=== PATIENT | female | born 1950 | race Caucasian/White ===

== ENCOUNTER 2016-05-31 11:44 | Emergency (ER) | payer MEDICARE ==
--- NOTE | 2016-05-31 11:58 | ER Document Report ---
ED Medical Screen (RME) - General Chief Complaint: General Weakness Stated Complaint: BACK PAIN TRAVEL OUTSIDE OF THE [place] IN LAST 30 DAYS: No - HPI Patient complains to provider of: generalized weakness Notes: 05/31/16 11:57 Generalweakness for a few days nausea vomiting patient has a history of hypothyroid did not take her Synthroid a day patient has urinalysis performed showing positive nitrates. Denies fevers patient did get a flu shot this year - Related Data Allergies/Adverse Reactions: morphine Allergy (Verified 05/31/16 11:47) Past Medical History Renal/ Medical History: Denies: Hx Peritoneal Dialysis Review of Systems - Review of Systems Constitutional: Weakness Physical Exam - Vital signs Vitals: Temp Pulse Resp BP Pulse Ox 97.7 F 77 16 118/93 H 100 05/31/16 11:49 05/31/16 11:49 05/31/16 11:49 05/31/16 11:49 05/31/16 11:49 - Cardiovascular Rhythm: Regular Heart sounds: Normal auscultation Course - Vital Signs Vital signs: Temp Pulse Resp BP Pulse Ox 97.7 F 77 16 118/93 H 100 05/31/16 11:49 05/31/16 11:49 05/31/16 11:49 05/31/16 11:49 05/31/16 11:49
[2016-05-31 12:30] LABS: ABSOLUTE LYMPHOCYTES (AUTO) 1.3 10^3/uL (0.5-4.7); ABSOLUTE MONOCYTES (AUTO) 0.3 10^3/uL (0.1-1.4); ABSOLUTE NEUT (AUTO) 1.2 10^3/uL (1.7-8.2); BASOPHILS % (AUTO) 0.4 % (0-2); EOSINOPHILS % (AUTO) 0.1 % (0-6); HEMATOCRIT 39.8 % (36.0-47.0); HEMOGLOBIN 13.2 g/dL (12.0-15.5); HGB HCT DIFFERENCE -0.2; LYMPHOCYTES % (AUTO) 45.9 % (13-45); MEAN CORPUSCULAR HEMOGLOBIN 28.1 pg (27.0-33.4); MEAN CORPUSCULAR HGB CONC 33.2 g/dL (32.0-36.0); MEAN CORPUSCULAR VOLUME 85 fl (80-97); MONOCYTES % (AUTO) 10.9 % (3-13); RED CELL DISTRIBUTION WIDTH 14.3 % (11.5-14.0); SEGMENTED NEUTROPHILS % (AUTO) 42.7 % (42-78); WHITE BLOOD COUNT 2.9 10^3/uL (4.0-10.5)
[2016-05-31 12:36] LABS: APPEARANCE,URINE CLOUDY; BILIRUBIN,URINE NEGATIVE (NEGATIVE); GLUCOSE, URINE >=500 mg/dL (NEGATIVE); KETONES,URINE NEGATIVE (NEGATIVE); LEUKOCYTE ESTERASE,URINE MODERATE (NEGATIVE); NITRITE,URINE POSITIVE (NEGATIVE); PROTEIN,URINE 30 mg/dL (NEGATIVE); URINE SPECIFIC GRAVITY 1.033; UROBILINOGEN,URINE NEGATIVE mg/dL (<2.0)
[2016-05-31 12:45] LABS: ALANINE AMINOTRANSFERASE 45 U/L (9-52); ALBUMIN 3.7 g/dL (3.5-5.0); ALKALINE PHOSPHATASE 52 U/L (38-126); ANION GAP 12 (5-19); ASPARTATE AMINO TRANSFERASE 29 U/L (14-36); BILIRUBIN,DIRECT 0.2 mg/dL (0.0-0.4); BILIRUBIN,TOTAL 0.7 mg/dL (0.2-1.3); BLOOD UREA NITROGEN 13 mg/dL (7-20); CALCIUM 8.8 mg/dL (8.4-10.2); CARBON DIOXIDE 24 mmol/L (22-30); CHLORIDE 108 mmol/L (98-107); CREATININE RESULT 0.69 mg/dL (0.52-1.25); GLUCOSE 169 mg/dL (75-110); LIPASE 335.2 U/L (23-300); MAGNESIUM 1.7 mg/dL (1.6-2.3); POTASSIUM 3.8 mmol/L (3.6-5.0); SODIUM 144.2 mmol/L (137-145); TOTAL PROTEIN 6.6 g/dL (6.3-8.2)
[2016-05-31 13:15] LABS: THYROID STIMULATING HORMONE 0.1 uIU/mL (0.47-4.68)
[2016-05-31] MEDS ORDERED: CIPROFLOXACIN 400 MG/D5W RTU 200 ML IV ONE (13:15)
[2016-05-31] MEDS ORDERED: CIPROFLOXACIN HCL 500 MG TABLET PO ONE (13:23)
[2016-05-31] MEDS ORDERED: ONDANSETRON 4 MG TAB.RAPDIS PO ONE (13:25)
--- NOTE | 2016-05-31 13:25 | ER Document Report ---
ED General - General Chief Complaint: General Weakness Stated Complaint: BACK PAIN Mode of Arrival: Ambulatory Information source: Patient Notes: 66-year-old female presents with complaints of right flank pain generalized weakness nausea vomiting and feeling warm over the past few days. Patient denies any specific fever. Patient was seen by primary care physician noted to have a UTI and sent in for further evaluation TRAVEL OUTSIDE OF THE [place] IN LAST 30 DAYS: No - HPI Onset: Yesterday - Three-day duration Onset/Duration: Persistent Quality of pain: Achy Severity: Mild Pain Level: 1 Associated symptoms: Nausea, Vomiting, Weakness Exacerbated by: Denies Relieved by: Denies Similar symptoms previously: No Recently seen / treated by doctor: No - Related Data Allergies/Adverse Reactions: morphine Allergy (Verified 05/31/16 12:39) Past Medical History - Social History Smoking Status: Former Smoker Cigarette use (# per day): No Chew tobacco use (# tins/day): No Smoking Education Provided: No Frequency of alcohol use: None Drug Abuse: None Family History: Reviewed & Not Pertinent Patient has suicidal ideation: No Patient has homicidal ideation: No Endocrine Medical History: Reports: Hx Diabetes Mellitus Type 2 Renal/ Medical History: Denies: Hx Peritoneal Dialysis Past Surgical History: Reports: Hx Section - x3, Hx Hysterectomy Review of Systems - Review of Systems Notes: REVIEW OF SYSTEMS: CONSTITUTIONAL : Denies fever, chills, or sweats. Denies recent illness. EENT: Denies eye, ear, throat, or mouth pain or symptoms. Denies nasal or sinus congestion or discharge. Denies throat, tongue, or mouth swelling or difficulty swallowing. CARDIOVASCULAR: Denies chest pain. Denies palpitations or racing or irregular heart beat. Denies ankle edema. RESPIRATORY: Denies cough, cold, or chest congestion. Denies shortness of breath, difficulty breathing, or wheezing. GASTROINTESTINAL: Admits to nausea vomiting or flank pain GENITOURINARY: Denies difficulty urinating, painful urination, burning, frequency, blood in urine, or discharge. FEMALE GENITOURINARY: Denies vaginal bleeding, heavy or abnormal periods, irregular periods. Denies vaginal discharge or odor. MUSCULOSKELETAL: Denies back or neck pain or stiffness. Denies joint pain or swelling. SKIN: Denies rash, lesions or sores. HEMATOLOGIC : Denies easy bruising or bleeding. LYMPHATIC: Denies swollen, enlarged glands. NEUROLOGICAL: Admits to generalized weakness PSYCHIATRIC: Denies anxiety or stress. Denies depression, suicidal ideation, or homicidal ideation. ALL OTHER SYSTEMS REVIEWED AND NEGATIVE. Dictation was performed using [employer] voice recognition software PHYSICAL EXAMINATION: GENERAL: Well-appearing, well-nourished and in no acute distress. HEAD: Atraumatic, normocephalic. EYES: Pupils equal round and reactive to light, extraocular movements intact, conjunctiva are normal. ENT: Nares patent, oropharynx clear without exudates. Moist mucous membranes. NECK: Normal range of motion, supple without lymphadenopathy LUNGS: Breath sounds clear to auscultation bilaterally and equal. No wheezes rales or rhonchi. HEART: Regular rate and rhythm without murmurs ABDOMEN: Soft, nontender, nondistended abdomen. No guarding, no rebound. No masses appreciated. Mild right CVA tenderness Female : deferred Musculoskeletal: Normal range of motion, no pitting or edema. No cyanosis. NEUROLOGICAL: Cranial nerves grossly intact. Normal speech, normal gait. Normal sensory, motor exams PSYCH: Normal mood, normal affect. SKIN: Warm, Dry, normal turgor, no rashes or lesions noted. Physical Exam - Vital signs Vitals: Temp Pulse Resp BP Pulse Ox 97.7 F 77 16 118/93 H 100 05/31/16 11:49 05/31/16 11:49 05/31/16 11:49 05/31/16 11:49 05/31/16 11:49 Course - Re-evaluation Re-evalutation: 05/31/16 15:11 Urinalysis is consistent with a UTI, patient's laboratory otherwise notes mild leukopenia TSH was noted to be low as well. I believe the patient has pyelonephritis looks well. Patient will be started on antibiotics given nausea control and very strict return precautions. Patient states she understands and will do so and is very happy to be discharged After performing a Medical Screening Examination, I estimate there is LOW risk for ACUTE APPENDICITIS, BOWEL OBSTRUCTION, ACUTE CHOLECYSTITIS, PERFORATED DIVERTICULITIS, INCARCERATED HERNIA, PANCREATITIS, PELVIC INFLAMMATORY DISEASE, PERFORATED ULCER, ECTOPIC , or TUBO-OVARIAN ABSCESS, thus I consider the discharge disposition reasonable. Also, there is no evidence or peritonitis , sepsis, or toxicity. The patient and I have discussed the diagnosis and risks , and we agree with discharging home with close follow-up with the understanding that symptoms and presentations can change. We also discussed returning to the Emergency Department immediately if new or worsening symptoms occur. We have discussed the symptoms which are most concerning (e.g., bloody stool, fever, changing or worsening pain, vomiting) that necessitate immediate return. - Vital Signs Vital signs: Temp Pulse Resp BP Pulse Ox 98.7 F 70 19 144/62 H 94 05/31/16 13:39 05/31/16 13:39 05/31/16 13:39 05/31/16 13:39 05/31/16 13:39 - Laboratory Result Diagrams: 05/31/16 12:05 05/31/16 12:05 Laboratory results interpreted by me: 05/31/16 05/31/16 05/31/16 12:05 12:05 12:05 WBC 2.9 L RDW 14.3 H Plt Count 103 L Lymphocytes % 45.9 H Absolute Neutrophils 1.2 L Chloride 108 H Glucose 169 H Lipase 335.2 H TSH 0.10 L Urine Protein Urine Glucose (UA) Urine Nitrite Ur Leukocyte Esterase 05/31/16 12:05 WBC RDW Plt Count Lymphocytes % Absolute Neutrophils Chloride Glucose Lipase TSH Urine Protein 30 H Urine Glucose (UA) >=500 H Urine Nitrite POSITIVE H Ur Leukocyte Esterase MODERATE H Discharge - Discharge Clinical Impression: Pyelonephritis, Weakness, Secondary hypothyroidism Condition: Stable Disposition: HOME, SELF-CARE Instructions: Pyelonephritis ([facility]) Prescriptions: Ciprofloxacin HCl [Cipro 500 mg Tablet] 500 mg PO BID #20 tablet Ondansetron HCl [Zofran] 8 mg PO Q6 #14 tablet Referrals: BRIAN LAWRENCE DO [Primary Care Provider] - Follow up tomorrow
[2016-05-31 13:43] VITALS: BP 144/62
== END 2016-05-31 13:43 | disposition home or self-care (01) ==
LOC: ER 11:44
DX: E03.9 Hypothyroidism, unspecified (principal); R53.1 Weakness; N12 Tubulo-interstitial nephritis, not specified as acute or chronic; R11.2 Nausea with vomiting, unspecified; R10.9 Unspecified abdominal pain; Z88.5 Allergy status to narcotic agent; Z87.891 Personal history of nicotine dependence; E11.9 Type 2 diabetes mellitus without complications; D72.819 Decreased white blood cell count, unspecified
CPT/HCPCS: 99283; 36415; 84439; 83605; 83690; 83735; 84443; 85025; 80053; 81001; A9270 ×2; S0119

== ENCOUNTER → 2016-07-02 | Outpatient (CLI) | payer MEDICARE ==
[~2016-07-02] MED LIST: AMINOPHYLLINE INJ/PF 250 MG/10 ML SDV IV ONE; REGADENOSON INJ 0.4 MG/5 ML DISP.SYRIN IV ONE
--- NOTE | 2016-07-02 18:45 | NON-INVASIVE CARDIOLOGY (SQ) ---
INTRAVENOUS LEXISCAN CARDIOLITE STRESS TEST USING SINGLE PHOTON EMMISION COMPUTERIZED TOMOGRAPHIC. DATE OF PROCEDURE: July 02, 2016 INDICATION : Coronary artery disease CARDIAC RISK FACTORS: Diabetes, hypertension, dyslipidemia, family history of CAD RESTING EKG: Sinus rhythm without any baseline ST-T wave changes STRESS EKG: No significant changes noted with LexiScan bolus REASON FOR TERMINATION: Protocol. PROCEDURE REPORT: Baseline heart rate 70 beats per minute with blood pressure of 127/66. Patient had no significant complaints. Heart rate at 2 minutes post bolus 79 with a blood pressure of 120/47. 3 minutes post bolus heart rate 76 with blood pressure of 126/49. No significant EKG changes were noted. Patient had no significant complaints during the procedure or postprocedure. Patient injected with Aminophyllin 75 mg at 3 minutes or later after Lexiscan bolus. CONCLUSIONS: Normal EKG and hemodynamic response to IV LexiScan. NUCLEAR DATA: At rest the patient was given 13.88 millicuries of technetium 99 sestamibi injected intravenously. As per protocol rest gated SPECT images were obtained. Subsequently the patient was given intravenous LexiScan at a dose of 0.4 mg in 5 mL intravenously, followed by flush with normal saline. Subsequently the stress dose of 41.6 millicuries of technetium 99 sestamibi was injected intravenously. As per protocol stress gated images were obtained. NUCLEAR INTERPRETATION: Both raw and processed data were used for interpretation. Visual, qualitative, computer-generated quantitative data was used. There was good myocardial uptake of technetium compound. Motion artifact and soft tissue attenuations were noted. Increased visceral uptake was noted. Mild decreased uptake noted in the LV apex felt to be related to normal apical thinning. Cannot rule out a small area of prior mild apical scar but no corresponding wall motion abnormalities were noted No definitive areas of transient perfusion defect noted. No definitive areas of fixed perfusion defect or scars noted. EKG gated imaging showed LV EF at 52 %, rest and stress gated EF similar visually. T. I D. ratio was 1.01. Lung heart ratio noted to be within normal limits 0.34. No significant extracardiac and abnormal radiotracer activities were noted. RV free wall uptake was noted to be borderline increased. IMPRESSION: Also refer to comments under nuclear interpretation. Also test results needs to be interpreted in the context of pretest probability. 1. There is no definitive scintigraphic evidence of LexiScan induced myocardial ischemia. 2. There is no definitive scintigraphic evidence of myocardial infarction/scar. 3. EKG gated imaging shows left ejection fraction of approximately 52 %. 4. Clinical correlation requested as occasionally single vessel disease or balanced ischemia could be missed. In approximately 10% of the cases Lexiscan may not cause adequate vasodilatory stress. RECOMMENDATIONS: Aggressive risk factor modification, medical therapy. Clinical correlation with echocardiogram derived ejection fraction. Inability to exercise by itself can lead to increased cardiovascular event risks. Dwain Mckee M.D., [facility] Director plastic bubble packer, Board certified in cardiovascular diseases, Nuclear cardiology, Echocardiography Cardiac CT and cardiac MRI Ph. [phone] [facility]
== END ==
LOC: RAD 07:53
PROVIDERS: ATTEND Internal Medicine Cardiovascular Disease
DX: I25.10 Atherosclerotic heart disease of native coronary artery without angina pectoris (principal)
CPT/HCPCS: 93017; 78452; A9500; J2785; J0280; Q9969

== ENCOUNTER 2016-09-27 09:36 | Emergency (ER) | payer MEDICARE ==
[2016-09-27] MEDS ORDERED: BUPIVACAINE HCL 0.5 % INJ/PF 30 ML SDV INJ ONE (10:24)
[2016-09-27] MEDS ORDERED: CLINDAMYCIN HCL 150 MG CAPSULE PO ONE (10:24)
--- NOTE | 2016-09-27 10:29 | ER Document Report ---
ED General - General Chief Complaint: Facial Swelling Stated Complaint: JAW PAIN Time Seen by Provider: 09/27/16 10:09 Mode of Arrival: Ambulatory Information source: Patient Notes: 66-year-old female history of diabetes coronary artery disease very poor dentition presents with complaints of left facial swelling. Patient notes symptoms started over the past 3 days. Patient notes her tooth was hurting on the left. Denies a history of previous abscesses. Patient denies any fevers or chills, difficulty breathing TRAVEL OUTSIDE OF THE [place] IN LAST 30 DAYS: No - HPI Onset: Last week Onset/Duration: Persistent, Worse Quality of pain: Achy Severity: Moderate Pain Level: 2 Associated symptoms: Other Exacerbated by: Food Relieved by: Denies Similar symptoms previously: No Recently seen / treated by doctor: No - Related Data Allergies/Adverse Reactions: morphine Allergy (Verified 09/27/16 10:08) Past Medical History - Social History Smoking Status: Never Smoker Cigarette use (# per day): No Chew tobacco use (# tins/day): No Smoking Education Provided: No Frequency of alcohol use: None Drug Abuse: None Family History: Reviewed & Not Pertinent Patient has suicidal ideation: No Patient has homicidal ideation: No - Past Medical History Cardiac Medical History: Reports: Hx Hypertension Endocrine Medical History: Reports: Hx Diabetes Mellitus Type 2 Renal/ Medical History: Denies: Hx Peritoneal Dialysis Past Surgical History: Reports: Hx Section - x3, Hx Hysterectomy Review of Systems - Review of Systems Notes: REVIEW OF SYSTEMS: CONSTITUTIONAL : Denies fever, chills, or sweats. Denies recent illness. EENT: Admits to dental pain facial swelling CARDIOVASCULAR: Denies chest pain. Denies palpitations or racing or irregular heart beat. Denies ankle edema. RESPIRATORY: Denies cough, cold, or chest congestion. Denies shortness of breath, difficulty breathing, or wheezing. GASTROINTESTINAL: Denies abdominal pain or distention. Denies nausea, vomiting , or diarrhea. Denies blood in vomitus, stools, or per rectum. Denies black, tarry stools. Denies constipation. GENITOURINARY: Denies difficulty urinating, painful urination, burning, frequency, blood in urine, or discharge. FEMALE GENITOURINARY: Denies vaginal bleeding, heavy or abnormal periods, irregular periods. Denies vaginal discharge or odor. MUSCULOSKELETAL: Denies back or neck pain or stiffness. Denies joint pain or swelling. SKIN: Denies rash, lesions or sores. HEMATOLOGIC : Denies easy bruising or bleeding. LYMPHATIC: Denies swollen, enlarged glands. NEUROLOGICAL: Denies confusion or altered mental status. Denies passing out or loss of consciousness. Denies dizziness or lightheadedness. Denies headache. Denies weakness or paralysis or loss of use of either side. Denies problems with gait or speech. Denies sensory loss, numbness, or tingling. Denies seizures. PSYCHIATRIC: Denies anxiety or stress. Denies depression, suicidal ideation, or homicidal ideation. ALL OTHER SYSTEMS REVIEWED AND NEGATIVE. PHYSICAL EXAMINATION: GENERAL: Well-appearing, well-nourished and in no acute distress. HEAD: Facial edema noted tender fluctuant just lateral to tooth number 19 EYES: Pupils equal round and reactive to light, extraocular movements intact, conjunctiva are normal. ENT: left facial edema, poor dentition gum around missing tooth 19 swollen NECK: Normal range of motion, supple without lymphadenopathy LUNGS: Breath sounds clear to auscultation bilaterally and equal. No wheezes rales or rhonchi. HEART: Regular rate and rhythm without murmurs ABDOMEN: Soft, nontender, nondistended abdomen. No guarding, no rebound. No masses appreciated. Female : deferred Musculoskeletal: Normal range of motion, no pitting or edema. No cyanosis. NEUROLOGICAL: Cranial nerves grossly intact. Normal speech, normal gait. Normal sensory, motor exams PSYCH: Normal mood, normal affect. SKIN: Warm, Dry, normal turgor, no rashes or lesions noted. Dictation was performed using [employer] voice recognition software Physical Exam - Vital signs Vitals: Temp Pulse Resp BP Pulse Ox 98 F 60 16 186/64 H 97 09/27/16 10:04 09/27/16 10:04 09/27/16 10:04 09/27/16 10:04 09/27/16 10:04 Course - Re-evaluation Re-evalutation: 09/27/16 10:29 pt has obvious swelling around an infected decayed tooth. 09/27/16 10:54 area incise, drained, no complications. pt placed jovan ntibtiocs given very strict return precautaitons no signs of airway compromise, dea angina at this time After performing a Medical Screening Examination, I estimate there is LOW risk for a DEEP SPACE INFECTION (e.g., DEA'S ANGINA OR RETROPHARYNGEAL ABSCESS), MENINGITIS, INTRACRANIAL HEMORRHAGE, or AIRWAY COMPROMISE, thus I consider the discharge disposition reasonable. Also, there is no evidence or peritonitis, sepsis, or toxicity. I have reevaluated this patient multiple times and no significant life threatening changes are noted. The patient and I have discussed the diagnosis and risks, and we agree with discharging home with close follow-up with the understanding that symptoms and presentations can change. We also discussed returning to the Emergency Department immediately if new or worsening symptoms occur. We have discussed the symptoms which are most concerning (e.g., changing or worsening pain, trouble swallowing or breathing, neck stiffness or fever) that necessitate immediate return. - Vital Signs Vital signs: Temp Pulse Resp BP Pulse Ox 98 F 60 16 186/64 H 97 09/27/16 10:04 09/27/16 10:04 09/27/16 10:04 09/27/16 10:04 09/27/16 10:04 Procedures - Incision and Drainage Left Lower Face Time completed: 10:50 Type: Simple Anesthetic type: 0.5% Bupivacaine mL's of anesthetic: 10 Blade size: 11 I&D procedure: Sterile dressing applied Incision Method: Incision made by scalpel Amount/type of drainage: small pus with large blood - Additional Procedures inferior alveolar nerve block Time performed: 10:45 - using 10cc of 0.5% bupivicaine iwth ocmplete releif no complication Discharge - Discharge Clinical Impression: Dental abscess, Facial swelling Condition: Stable Disposition: HOME, SELF-CARE Instructions: Abscess ([facility]), Post Incision and Drainage Additional Instructions: Follow up with your physician tomorrow for further care or return to the ED IMMEDIATELY if symptoms worsen or new concerns occur. If you cannot afford to follow up with your primary care physician a list of low cost clinics have been provided at the end of your discharge papers as well. Prescriptions: Clindamycin HCl 300 mg PO Q6 #40 capsule
[2016-09-27 11:06] VITALS: BP 174/88
== END 2016-09-27 11:07 | disposition home or self-care (01) ==
LOC: ER 09:36
PROC: 0H91XZZ Drainage of Face Skin, External Approach (ICD-10-PCS; principal; 2016-09-27)
DX: K04.7 Periapical abscess without sinus (principal); K02.9 Dental caries, unspecified; R22.0 Localized swelling, mass and lump, head; E11.9 Type 2 diabetes mellitus without complications; I25.10 Atherosclerotic heart disease of native coronary artery without angina pectoris; I10 Essential (primary) hypertension; Z88.5 Allergy status to narcotic agent
CPT/HCPCS: 99283; 10060; A9270

== ENCOUNTER 2017-04-21 06:23 | Emergency (ER) | payer MEDICARE ==
[2017-04-21] MEDS ORDERED: DIAZEPAM 5 MG TABLET PO ONE (07:15)
[2017-04-21] MEDS ORDERED: KETOROLAC TROMETHAMINE 60 MG/2 ML SDV IM ONE (07:15)
--- NOTE | 2017-04-21 07:20 | ER Document Report ---
ED General - General Chief Complaint: Back Pain Stated Complaint: LOW BACK PAIN Time Seen by Provider: 04/21/17 07:12 Mode of Arrival: Ambulatory Information source: Patient Notes: 67 years old female presents today with pain over the lower back for the last few days more so this morning. The pain is centered mostly on the right lower back but also in the left lower back. More intense pain on the right lower back and radiates to the middle part of the thigh. Had no difficulty in walking. Denies any numbness tingling sensation or weakness over the lower extremities. No injuries. Was not lifting any heavy objects. Did not have similar symptoms before. Denies any abdominal pain nausea vomiting diarrhea dysuria or frequency. Denies any flank pain. Denies any other constitutional symptoms. TRAVEL OUTSIDE OF THE [place] IN LAST 30 DAYS: No - HPI Onset: Yesterday Onset/Duration: Gradual Quality of pain: Achy, Sharp. denies: No pain, Burning, Cramping, Dull, Fullness, Pressure, Stabbing, Throbbing, Other Associated symptoms: denies: None, Allergy/hay fever, Body/muscle aches, Chest pain, Chills, Nonproductive cough, Productive cough, Diarrhea, Drooling, Earache , Fever, Headache, Hoarseness, Hurts to breath, Leg swelling, Nausea, Vomiting, Rhinnorhea, Sinus pain/drainage, Shortness of breath, Slow to respond, Sore throat, Sweating, Weakness, Other Exacerbated by: Movement, Walking. denies: Denies, Supine, Sitting, Standing, Coughing, Deep breathing, Food, Other Relieved by: denies: Denies, Supine, Sitting, Standing, Remaining still, Antacids, Food, Other - Related Data Allergies/Adverse Reactions: morphine Allergy (Verified 09/27/16 10:08) Past Medical History - General Information source: Parent - Social History Smoking Status: Never Smoker Chew tobacco use (# tins/day): No Frequency of alcohol use: None Drug Abuse: None Family History: Reviewed & Not Pertinent Patient has suicidal ideation: No Patient has homicidal ideation: No - Past Medical History Cardiac Medical History: Reports: Hx Hypertension Endocrine Medical History: Reports: Hx Diabetes Mellitus Type 2 Renal/ Medical History: Denies: Hx Peritoneal Dialysis Past Surgical History: Reports: Hx Section - x3, Hx Hysterectomy Review of Systems - Review of Systems Constitutional: denies: No symptoms reported, See HPI, Chills, Diaphoresis, Fever, Malaise, Weakness, Other, Weight gain, Weight loss, Recent illness EENT: denies: No symptoms reported, See HPI, Eye pain, Eye discharge, Blurred vision, Tearing, Double vision, Ear pain, Ear discharge, Nose pain, Nose congestion, Nose discharge, Sinus pressure, Sinus discharge, Throat pain, Difficulty swallowing, Throat swelling, Mouth pain, Mouth swelling, Dental problem, Vertigo, Other Cardiovascular: denies: No symptoms reported, See HPI, Chest pain, Palpitations , Heart racing, Orthopnea, Dyspnea, Syncope, Dizziness, Lightheaded, Edema, Other, Paroxysmal Nocturnal Dysp Respiratory: denies: No symptoms reported, See HPI, Cough, Hurts to breathe, Hemoptysis, Short of breath, Sputum, Stridor, Wheezing, Other Gastrointestinal: denies: No symptoms reported, See HPI, Abdomen distended, Abdominal pain, Diarrhea, Nausea, Vomiting, Constipation, Blood streaked bowels , Poor appetite, Poor fluid intake, Blood in vomit, Black stools, Rectal bleeding, Last bowel movement, Fecal incontinence, Other Genitourinary: denies: No symptoms reported, See HPI, Burning, Dysuria, Discharge, Frequency, Flank pain, Hematuria, Incontinence, Pain, Urgency, Retention, Other Female Genitourinary: denies: No symptoms reported, See HPI, Last menstrual period, , Post menopausal, Heavy/abnormal periods, Irregular period, Vaginal bleeding, Vaginal discharge, Vaginal odor, Painful intercourse, Other Musculoskeletal: Back pain Skin: denies: No symptoms reported, See HPI, Change in color, Change in hair/ nails, Dryness, Lesions, Lumps, Rash, Other Hematologic/Lymphatic: denies: No symptoms reported, See HPI, Anemia, Blood clots, Easy bleeding, Easy bruising, Enlarged lymph nodes, Swollen glands, Other Neurological/Psychological: denies: No symptoms reported, See HPI, Confusion, Dementia, Depression, Hallucinations, Anxiety, Homicidal ideation, Sensory change, Weakness, Gait changes, Loss of power, Paralysis, Seizure, Lost consciousness, Headaches, Speech impairment, Numbness, Suicidal ideation, Tingling, Tremor, Other Physical Exam - Notes Notes: PHYSICAL EXAMINATION: GENERAL: Well-appearing, well-nourished and mild to moderate discomfort, obesity HEAD: Atraumatic, normocephalic. EYES: Pupils equal round and reactive to light, extraocular movements intact, conjunctiva are normal. ENT: Nares patent, oropharynx clear without exudates. Moist mucous membranes. NECK: Normal range of motion, supple without lymphadenopathy LUNGS: Breath sounds clear to auscultation bilaterally and equal. No wheezes rales or rhonchi. HEART: Regular rate and rhythm without murmurs ABDOMEN: Soft, nontender, nondistended abdomen. No guarding, no rebound. No masses appreciated. Female : deferred Musculoskeletal: Right lower back at the L5-S1 region slight tenderness were noted, gets more tender over the right sacroiliac joint region. And also moderate tenderness over the left sacroiliac joint region. Neurovascular function distally was within normal limits. NEUROLOGICAL: Cranial nerves grossly intact. Normal speech, normal gait. Normal sensory, motor exams PSYCH: Normal mood, normal affect. SKIN: Warm, Dry, normal turgor, no rashes or lesions noted. Course - Re-evaluation Re-evalutation: 04/21/17 08:26 Was given Toradol IM as well as Valium, with clinical improvement discharge home 04/21/17 08:26 - Laboratory Laboratory results interpreted by me: 04/21/17 07:00 Urine Protein 100 H Urine Glucose (UA) >=500 H Urine Ketones TRACE H Discharge - Discharge Clinical Impression: Bilateral sacroiliitis Lower back pain Qualifiers: Chronicity: acute Back pain laterality: unspecified Sciatica presence: without sciatica Qualified Code(s): M54.5 - Low back pain Condition: Fair Disposition: ADMITTED INPATIENT Instructions: Oral Narcotic Medication ([facility]), Low Back Pain ([facility]) Prescriptions: Hydrocodone/Acetaminophen [Vicodin 5-300 mg Tablet] 1 each PO Q6HP PRN #20 tablet PRN Reason: Ketorolac Tromethamine [Toradol 10 mg Tablet] 10 mg PO Q6HP PRN #20 tablet PRN Reason: Diazepam [Valium 2 mg Tablet] 2 mg PO BID PRN #14 tablet PRN Reason: Referrals: BRAIN LAWRENCE, [Primary Care Provider] - Follow up as needed
[2017-04-21] MEDS ORDERED: KETOROLAC TROMETHAMINE INJ/PF 30 MG/1 ML SDV IV ONE (07:42)
[2017-04-21 08:04] LABS: APPEARANCE,URINE CLEAR; BILIRUBIN,URINE NEGATIVE (NEGATIVE); COLOR,URINE YELLOW; GLUCOSE, URINE >=500 mg/dL (NEGATIVE); KETONES,URINE TRACE mg/dL (NEGATIVE); LEUKOCYTE ESTERASE,URINE NEGATIVE (NEGATIVE); NITRITE,URINE NEGATIVE (NEGATIVE); PROTEIN,URINE 100 mg/dL (NEGATIVE); URINE SPECIFIC GRAVITY 1.018; UROBILINOGEN,URINE NEGATIVE mg/dL (<2.0)
--- NOTE | 2017-04-21 08:20 | RADIOLOGY REPORT (SQ) ---
EXAM DESCRIPTION: L SPINE WHOLE COMPLETED DATE/TIME: 04/21/2017 7:42 am REASON FOR STUDY: Back pain COMPARISON: None. NUMBER OF VIEWS: Five views including obliques. TECHNIQUE: AP, lateral, oblique, and sacral radiographic images acquired of the lumbar spine. LIMITATIONS: None. FINDINGS: MINERALIZATION: Normal. SEGMENTATION: Normal. No transitional anatomy. ALIGNMENT: Normal. VERTEBRAE: Maintained height. No fracture or worrisome bone lesion. DISCS: Mild disc space loss of height at L5-S1 POSTERIOR ELEMENTS: Mild bilateral facet joint space narrowing and bony spurring at L5-S1. HARDWARE: None in the spine. PARASPINAL SOFT TISSUES: Normal. PELVIS: Not included in the field of view. SI joints are unremarkable. OTHER: No other significant finding. IMPRESSION: Mild degenerative changes lower lumbar spine TECHNICAL DOCUMENTATION: JOB ID: [id number]- All Rights Reserved Reading location - IP/workstation name: [email or web address]
[2017-04-21 08:53] VITALS: BP 149/68
== END 2017-04-21 08:51 | disposition other institution (70) ==
LOC: ER 06:23
DX: M46.1 Sacroiliitis, not elsewhere classified (principal); M54.5 Low back pain; M54.9 Dorsalgia, unspecified; M79.651 Pain in right thigh
CPT/HCPCS: 99284; 96372; 81001; 72110; A9270; J1885

== ENCOUNTER 2020-01-08 18:23 | Observation (INO) | payer MEDICARE, BC ==
--- NOTE | 2020-01-08 19:47 | ER Document Report ---
ED Medical Screen (RME) - General Chief Complaint: Nausea/Vomiting Stated Complaint: NAUSEA/VOMITING Time Seen by Provider: 01/08/20 19:43 Primary Care Provider: BRIAN LAWRENCE DO [Primary Care Provider] - Follow up as needed Mode of Arrival: Wheelchair Information source: Patient Notes: 69-year-old female presented to ED for complaint of fatigue cough and vomiting when she coughs real hard. She was tested positive for Covid on 25 December. She does have nausea medicine that she takes she takes Zofran. Her son states that he was hesitant to bring her out here because she already has the nausea medicine and she knows she is Covid positive but he was convinced by other family members that she needed to come in to be checked out. We will get blood and urine chest x-ray and she will be seen by another provider. Cervical put back where you are and there get all the stuff going oka I have greeted and performed a rapid initial assessment of this patient. A comprehensive ED assessment and evaluation of the patient, analysis of test results and completion of medical decision making process will be conducted by an additional ED providers. TRAVEL OUTSIDE OF THE [place] IN LAST 30 DAYS: No - Related Data Allergies/Adverse Reactions: morphine Allergy (Verified 01/08/20 19:41) Past Medical History - Past Medical History Cardiac Medical History: Reports: Hx Hypertension Endocrine Medical History: Reports: Hx Diabetes Mellitus Type 2 Renal/ Medical History: Denies: Hx Peritoneal Dialysis Past Surgical History: Reports: Hx Section - x3, Hx Hysterectomy Physical Exam - Vital signs Vitals: Temp Pulse Resp BP Pulse Ox 98.1 F 80 18 132/64 H 93 01/08/20 18:41 01/08/20 18:41 01/08/20 18:41 01/08/20 18:41 01/08/20 18:41 Course - Vital Signs Vital signs: Temp Pulse Resp BP Pulse Ox 98.1 F 80 18 132/64 H 93 01/08/20 18:41 01/08/20 18:41 01/08/20 18:41 01/08/20 18:41 01/08/20 18:41 Doctor's Discharge - Discharge Referrals: BRIAN LAWRENCE DO [Primary Care Provider] - Follow up as needed
--- NOTE | 2020-01-08 20:47 | RADIOLOGY REPORT (SQ) ---
EXAM DESCRIPTION: Site: CHEST SINGLE VIEW RP: XR CHEST 1 VIEW CLINICAL HISTORY: 69 years Female; cough positive for covid on 12/26/19; COMPARISON: None. FINDINGS: Lungs: There are scattered groundglass densities throughout both lungs. No significant focal consolidation. No pneumothorax or pleural effusion. Mediastinum: Mediastinum is within normal limits for this positioning. Bones: Bony structures are unremarkable. IMPRESSION: 1. Scattered bilateral infiltrates, typical for viral pneumonia
[2020-01-08 23:11] LABS: ABSOLUTE EOSINOPHILS # (AUTO) 0.1 10^3/uL (0.0-0.6); ABSOLUTE LYMPHOCYTES (AUTO) 1.9 10^3/uL (0.5-4.7); ABSOLUTE MONOCYTES (AUTO) 0.6 10^3/uL (0.1-1.4); ABSOLUTE NEUT (AUTO) 5.6 10^3/uL (1.7-8.2); BASOPHILS % (AUTO) 0.1 % (0-2); EOSINOPHILS % (AUTO) 1.4 % (0-6); HEMATOCRIT 39.2 % (36.0-47.0); HEMOGLOBIN 13.4 g/dL (12.0-15.5); LYMPHOCYTES % (AUTO) 22.9 % (13-45); MEAN CORPUSCULAR HEMOGLOBIN 28.1 pg (27.0-33.4); MEAN CORPUSCULAR HGB CONC 34.1 g/dL (32.0-36.0); MEAN CORPUSCULAR VOLUME 82 fl (80-97); MONOCYTES % (AUTO) 7.6 % (3-13); PLATELET COUNT 324 10^3/uL (150-450); RED BLOOD COUNT 4.77 10^6/uL (3.72-5.28); RED CELL DISTRIBUTION WIDTH 13.9 % (11.5-14.0); TOTAL CELLS COUNTED % (AUTO) 100 %; WHITE BLOOD COUNT 8.3 10^3/uL (4.0-10.5)
[2020-01-08 23:36] LABS: ALBUMIN 3.5 g/dL (3.5-5.0); ALKALINE PHOSPHATASE 61 U/L (38-126); ANION GAP 11 (5-19); ASPARTATE AMINO TRANSFERASE 17 U/L (14-36); BILIRUBIN,TOTAL 1.2 mg/dL (0.2-1.3); BLOOD UREA NITROGEN 16 mg/dL (7-20); CALCIUM 9.4 mg/dL (8.4-10.2); CARBON DIOXIDE 26 mmol/L (22-30); CHLORIDE 99 mmol/L (98-107); GLUCOSE 193 mg/dL (75-110); POTASSIUM 3.6 mmol/L (3.6-5.0); TOTAL PROTEIN 6.8 g/dL (6.3-8.2)
[2020-01-09 00:37] LABS: APPEARANCE,URINE CLOUDY; BILIRUBIN,URINE NEGATIVE (NEGATIVE); GLUCOSE, URINE >=500 mg/dL (NEGATIVE); KETONES,URINE NEGATIVE (NEGATIVE); LEUKOCYTE ESTERASE,URINE MODERATE (NEGATIVE); NITRITE,URINE NEGATIVE (NEGATIVE); PROTEIN,URINE 100 mg/dL (NEGATIVE); URINE SPECIFIC GRAVITY 1.024; UROBILINOGEN,URINE NEGATIVE mg/dL (<2.0)
[2020-01-09] MEDS ORDERED: NORMAL SALINE 1000 ML 1,000 ML IV ONE (00:37)
[2020-01-09] MEDS ORDERED: CEFTRIAXONE 1 GM/D5W RTU 1 GM/50 ML RTUPB IV ONE (00:37)
[2020-01-09] MEDS ORDERED: AZITHROMYCIN INJ 500 MG VIAL IV ONE (00:37)
[2020-01-09] MEDS ORDERED: DEXAMETHASONE SOD PHOS INJ 10 MG/1 ML VIAL IV ONE (00:37)
[2020-01-09 00:38] LABS: COLOR,URINE DARK YELLOW
--- NOTE | 2020-01-09 00:40 | ER Document Report ---
ED General - General Chief Complaint: Nausea/Vomiting Stated Complaint: NAUSEA/VOMITING Time Seen by Provider: 01/08/20 19:43 Mode of Arrival: Wheelchair Notes: Patient is a 69-year-old female that comes emergency department for chief complaint of cough, weakness, dry heaving. Patient was tested for COVID-19 on December 25 and she was positive, she states that for the past 2 weeks she has been extremely rundown. She states that her daughter came over today and noticed that she did not look well and told her to come to the hospital to be evaluated. Patient denies shortness of breath, chest pain, she states she dry heaves today but did not vomit specifically, denies abnormal bowel movements. She denies sore throat, headache. She does state that she is extremely weak and this is her chief complaint at this time. She has a past medical history of type 2 diabetes, hypertension, hyperlipidemia, CAD with stents. She denies smoking history, COPD, asthma. TRAVEL OUTSIDE OF THE [place] IN LAST 30 DAYS: No - Related Data Allergies/Adverse Reactions: morphine Allergy (Verified 01/08/20 19:41) Past Medical History - General Information source: Patient - Social History Smoking Status: Former Smoker Frequency of alcohol use: None Drug Abuse: None Lives with: Alone Family History: Reviewed & Not Pertinent - Past Medical History Cardiac Medical History: Reports: Hx Coronary Artery Disease, Hx Hypertension Endocrine Medical History: Reports: Hx Diabetes Mellitus Type 2 Renal/ Medical History: Denies: Hx Peritoneal Dialysis Past Surgical History: Reports: Hx Cardiac Catheterization - With stent, Hx Section - x3, Hx Hysterectomy Review of Systems - Review of Systems Constitutional: See HPI EENT: No symptoms reported Cardiovascular: No symptoms reported Respiratory: No symptoms reported Gastrointestinal: See HPI Genitourinary: No symptoms reported Female Genitourinary: No symptoms reported Musculoskeletal: No symptoms reported Skin: No symptoms reported Hematologic/Lymphatic: No symptoms reported Neurological/Psychological: No symptoms reported Physical Exam - Vital signs Vitals: Temp Pulse Resp BP Pulse Ox 98.1 F 80 18 132/64 H 93 01/08/20 18:41 01/08/20 18:41 01/08/20 18:41 01/08/20 18:41 01/08/20 18:41 - Notes Notes: GENERAL: Patient is awake and alert, she is interactive, however she is tired and somewhat ill-appearing HEAD: Normocephalic, atraumatic. EYES: Pupils equal, round, and reactive to light. Extraocular movements intact. ENT: Oral mucosa dry, tongue midline. Oropharynx unremarkable. Airway patent. NECK: Full range of motion. Supple. Trachea midline. No lymphadenopathy. No nuchal rigidity LUNGS: Scattered rales noted throughout both general lung jeffries. Speaks in full sentences. No tachypnea or respiratory distress. Occasional congested cough. HEART: Regular rate and rhythm. No murmur ABDOMEN: Soft, non-tender. Non-distended. EXTREMITIES: Moves all 4 extremities spontaneously. No edema, normal radial and dorsalis pedis pulses bilaterally. No cyanosis. BACK: no cervical, thoracic, lumbar midline tenderness. No saddle anesthesia, normal distal neurovascular exam. Moves all extremities in full range of motion. NEUROLOGICAL: Alert and oriented x3. Normal speech. Cranial nerves II through XII grossly intact. Strength 5/5 in all extremities. PSYCH: Normal affect, normal mood. SKIN: Warm, dry, normal turgor. No rashes or lesions noted. Course - Re-evaluation Re-evalutation: Patient is hypoxic on room air and was placed on 2 L. She has rales on evaluation of her lungs in both lung jeffries although she is not in respiratory distress. Her abdomen is soft and benign. Her physical examination is otherwise unremarkable. She is not hypotensive or tachycardic. CBC unremarkable, chemistry unremarkable, troponin is negative. Chest x-ray sh owing viral pneumonia bilaterally. There is a long delay in obtaining ABG, this is somewhat nonspecific. Patient still noted to be hypoxic at rest. Patient stating she would like to go home, we obtained urine, this was noted to be infected, I have already initiated treatment for suspected Covid pneumonia with dexamethasone, Rocephin, azithromycin. Cultures pending. I had recommended admission. Patient was still unsure, she attempted to ambulate with pulse oxygen saturation, she had very labored breathing, was barely able to ambulate, and had hypoxia into the upper 80s. She is 88% at rest without nasal cannula. At this point patient change her mind, states she is in full agreement with admission. Will discuss with hospitalist. Discussed with Dr. Bravo, patient accepted to medical floor full admission. - Vital Signs Vital signs: Temp Pulse Resp BP Pulse Ox 98.1 F 80 22 H 148/52 H 94 01/08/20 18:41 01/08/20 18:41 01/09/20 01:30 01/09/20 01:30 01/09/20 01:30 - Laboratory Result Diagrams: 01/08/20 23:00 01/08/20 23:00 Laboratory results interpreted by me: 01/08/20 01/09/20 01/09/20 23:00 00:20 03:30 ABG pO2 76.6 L Sodium 135.9 L Est GFR (MDRD) Non-Af 52 L Glucose 193 H Urine Protein 100 H Urine Glucose (UA) >=500 H Ur Leukocyte Esterase MODERATE H - EKG Interpretation by Me Additional EKG results interpreted by me: EKG shows sinus rhythm at a rate of 64, first-degree AV block with TX interval of 224, QTc slightly prolonged at 508, borderline T wave inversions in inferior leads, no ST segment changes in consecutive leads Discharge - Discharge Clinical Impression: Pneumonia due to COVID-19 virus, Hypoxia, Weakness Urinary tract infection Qualifiers: Urinary tract infection type: site unspecified Hematuria presence: without hematuria Qualified Code(s): N39.0 - Urinary tract infection, site not specified Condition: Stable Disposition: ADMITTED INPATIENT Admitting Provider: Unit Admitted: Medical Floor
[2020-01-09] MEDS: ONDANSETRON HCL INJ/PF 4 MG/2 ML SDV IV PRN ×3 (02:29→13:02)
[2020-01-09 03:50] LABS: ARTERIAL BLOOD BASE EXCESS -0.9 mmol/L; ARTERIAL BLOOD FIO2 2L; ARTERIAL BLOOD H2CO3 1.07 mmol/L (1.05-1.35); ARTERIAL BLOOD O2 SATURATION 95.7 % (94-98); ARTERIAL BLOOD PCO2 35.4 mmHg (35-45); ARTERIAL BLOOD PH 7.43 (7.35-7.45); ARTERIAL BLOOD PO2 76.6 mmHg (80-100); ARTERIAL BLOOD TOTAL CO2 24.1 mmol/L (21-25)
[2020-01-09] MEDS ORDERED: ONDANSETRON HCL INJ/PF 4 MG/2 ML SDV IV PRN (05:39)
[2020-01-09] MEDS ORDERED: DEXTROSE 50%-WATER 25 GM/50 ML DISP.SYRIN IV PRN ×2 (05:58)
[2020-01-09] MEDS ORDERED: DEXTROSE 40% GEL 15 GM TUBE PO PRN ×2 (05:58)
[2020-01-09] MEDS ORDERED: GLUCAGON,HUMAN RECOMB 1 MG INJ IM PRN (05:58)
--- NOTE | 2020-01-09 06:21 | PDOC H&P ---
History of Present Illness Admission Date/PCP: 01/09/20 05:19 [facility] Patient complains of: Nausea and vomiting, cough History of Present Illness: DENILSON DA SILVA is a 69 year old female with a history of type 2 diabetes on insulin, hypertension and CAD who was diagnosed with COVID-19 about 2 weeks back now presents with worsening of symptoms. She states that she and her were diagnosed around the same time after coming in contact with her son and grandkids where also positive. Her had mild symptoms but she continues to have nausea and repeated vomiting. She states that she has lost her sense of taste and smell. She also has a dry cough and body aches but denies any fever, chest pain or shortness of breath even with exertion. She reports that she has been unable to eat anything over the past couple of weeks and has lost significant weight of about 20 pounds in the last 2 weeks. She was given unspecified medication for the nausea and vomiting by her primary care doctor but was not helpful. On arrival patient was saturating mid 80s on room air and was placed on intranasal oxygen at 2 L which improved her saturation to mid 90s. Past Medical History Cardiac Medical History: Reports: Hypertension Endocrine Medical History: Reports: Diabetes Mellitus Type 2 Past Surgical History Past Surgical History: Reports: Section - x3, Hysterectomy Social History Information Source: Patient Lives with: Family Smoking Status: Former Smoker Hx Recreational Drug Use: No Drugs: None - Advance Directive Resuscitation Status: Full Code Family History Family History: Reviewed & Not Pertinent Parental Family History Reviewed: Yes Children Family History Reviewed: Yes Sibling(s) Family History Reviewed.: Yes Medication/Allergy Home Medications: Ciprofloxacin HCl [Cipro 500 mg Tablet] 500 mg PO BID #20 tablet 05/31/16 Ondansetron HCl [Zofran] 8 mg PO Q6 #14 tablet 05/31/16 Clindamycin HCl 300 mg PO Q6 #40 capsule 09/27/16 Diazepam [Valium 2 mg Tablet] 2 mg PO BID PRN #14 tablet 04/21/17 Hydrocodone/Acetaminophen [Vicodin 5-300 mg Tablet] 1 each PO Q6HP PRN #20 tablet 04/21/17 Ketorolac Tromethamine [Toradol 10 mg Tablet] 10 mg PO Q6HP PRN #20 tablet 04/21/17 Allergies/Adverse Reactions: morphine Allergy (Verified 01/08/20 19:41) Review of Systems Constitutional: PRESENT: fatigue, weakness, weight loss Eyes: ABSENT: visual disturbances Ears: ABSENT: hearing changes Nose, Mouth, and Throat: PRESENT: vertigo. ABSENT: as per HPI, headache(s), mouth pain, sore throat Cardiovascular: ABSENT: chest pain, dyspnea on exertion, edema, orthropnea, palpitations Respiratory: PRESENT: as per HPI Gastrointestinal: PRESENT: as per HPI Genitourinary: ABSENT: dysuria, hematuria Musculoskeletal: ABSENT: joint swelling Integumentary: ABSENT: rash, wounds Neurological: ABSENT: abnormal gait, abnormal speech, confusion, dizziness, focal weakness, syncope Psychiatric: ABSENT: anxiety, depression, homidical ideation, suicidal ideation Endocrine: ABSENT: cold intolerance, heat intolerance, polydipsia, polyuria Hematologic/Lymphatic: ABSENT: easy bleeding, easy bruising Physical Exam Vital Signs: Temp Pulse Resp BP Pulse Ox 98.1 F 80 22 H 148/52 H 94 01/08/20 18:41 01/08/20 18:41 01/09/20 01:30 01/09/20 01:30 01/09/20 01:30 Intake & Output 01/07/20 01/08/20 01/09/20 06:59 06:59 06:59 Intake Total 1007 Balance 1007 Weight 85 kg Additional comments: GENERAL APPEARANCE: Alert and oriented x3, in no acute distress, breathing comfortably on 2 L intranasal oxygen HEENT: Normocephalic and atraumatic. No scleral icterus. Moist oral mucosa NECK: Supple. No lymphadenopathy or tenderness. No carotid bruit. No JVD CHEST: Symmetric. Nontender to palpation. LUNGS: Clear with good air entry bilaterally. No wheezing or crackles HEART: Regular rate and rhythm with normal S1 and S2. No murmurs, gallops, or rubs. ABDOMEN: soft, active bowel sounds, no direct or rebound tenderness. No organomegaly detected. EXTREMITIES: No cyanosis, clubbing, or edema. MUSCULOSKELETAL: No deformity, atrophy or swelling noted PSYCHIATRIC: Recent and remote memory is intact. Appropriate mood and affect. SKIN: Warm, dry, and well perfused. No lesions or rashes are noted. NEUROLOGIC: No focal sensory or motor deficits are noted. Results Laboratory Results: 01/08/20 23:00 01/08/20 23:00 01/08/20 01/08/20 01/09/20 23:00 23:00 00:20 WBC 8.3 RBC 4.77 Hgb 13.4 Hct 39.2 MCV 82 MCH 28.1 MCHC 34.1 RDW 13.9 Plt Count 324 Seg Neutrophils % 68.0 Carbonic Acid HCO3/H2CO3 Ratio ABG pH ABG pCO2 ABG pO2 ABG HCO3 ABG O2 Saturation ABG Base Excess FiO2 Sodium 135.9 L Potassium 3.6 Chloride 99 Carbon Dioxide 26 Anion Gap 11 BUN 16 Creatinine 1.05 Est GFR ( Amer) > 60 Glucose 193 H Calcium 9.4 Total Bilirubin 1.2 AST 17 Alkaline Phosphatase 61 Total Protein 6.8 Albumin 3.5 Urine Color DARK YELLOW Urine Appearance CLOUDY Urine pH 5.0 Ur Specific Sabael 1.024 Urine Protein 100 H Urine Glucose (UA) >=500 H Urine Ketones NEGATIVE Urine Blood NEGATIVE Urine Nitrite NEGATIVE Ur Leukocyte Esterase MODERATE H Urine WBC (Auto) 156 Urine RBC (Auto) 6 01/09/20 03:30 WBC RBC Hgb Hct MCV MCH MCHC RDW Plt Count Seg Neutrophils % Carbonic Acid 1.07 HCO3/H2CO3 Ratio 21:1 ABG pH 7.43 ABG pCO2 35.4 ABG pO2 76.6 L ABG HCO3 23.0 ABG O2 Saturation 95.7 ABG Base Excess -0.9 FiO2 2L Sodium Potassium Chloride Carbon Dioxide Anion Gap BUN Creatinine Est GFR ( Amer) Glucose Calcium Total Bilirubin AST Alkaline Phosphatase Total Protein Albumin Urine Color Urine Appearance Urine pH Ur Specific Sabael Urine Protein Urine Glucose (UA) Urine Ketones Urine Blood Urine Nitrite Ur Leukocyte Esterase Urine WBC (Auto) Urine RBC (Auto) 01/08/20 23:00 Troponin I < 0.012 Impressions: Chest X-Ray 01/08/20 19:44 IMPRESSION: 1. Scattered bilateral infiltrates, typical for viral pneumonia Assessment and Plan - Diagnosis (1) Acute respiratory failure with hypoxia Is this a current diagnosis for this admission?: Yes Plan: Patient was diagnosed with COVID-19 two weeks back Denies shortness of breath but oxygen saturation on arrival was mid 80s ABG: pH/PCO2/PO2=> 7.4 while on 2 L oxygen Chest x-ray shows scattered bilateral infiltrates suggestive of viral pneumonia Continue supplemental oxygen through intranasal cannula to keep saturation above 94% Started on dexamethasone, vitamin D, vitamin C, zinc Zofran 4 mg every 6 hourly as needed IV for nausea and vomiting Consider remdesivir and convalescent plasma Currently doing well on intranasal oxygen, will continue to closely monitor her respiratory parameters (2) Pneumonia due to COVID-19 virus Is this a current diagnosis for this admission?: Yes Plan: Patient diagnosed with COVID-19 2 weeks back Now presents with dry cough and intractable nausea and vomiting Chest x-ray shows bilateral scattered infiltrates concerning for viral pneumonia Continue intranasal oxygen, dexamethasone, vitamin D, zinc, vitamin C (3) Type 2 diabetes mellitus with hyperglycemia Qualifiers: Diabetes mellitus alf insulin use: with alf use Qualified Co de(s): E11.65 - Type 2 diabetes mellitus with hyperglycemia; Z79.4 - USP (current) use of insulin Is this a current diagnosis for this admission?: Yes Plan: Started on Lantus 20 units daily Sliding scale insulin, Accu-Chek, hypoglycemia protocol (4) Hypertension Is this a current diagnosis for this admission?: Yes Plan: Stable and BP at target We will hold hypertensive medication for now due to double nausea vomiting and possible volume depletion (5) CAD (coronary artery disease) Is this a current diagnosis for this admission?: Yes Plan: Currently chest pain-free Continue home medications (6) Obesity (BMI 30.0-34.9) Is this a current diagnosis for this admission?: Yes - Time Time Spent with patient: 35 or more minutes Total Critical Time (Minutes): 45 Medications reviewed and adjusted accordingly: Yes Anticipated Discharge Disposition: Home, Self Care Anticipated Discharge Timeframe: within 48 hours - Inpatient Certification Based on my medical assessment, after consideration of the patient's comorbidities, presenting symptoms, or acuity I expect that the services needed warrant INPATIENT care.: Yes I certify that my determination is in accordance with my understanding of Medicare's requirements for reasonable and necessary INPATIENT services [42 CFR 412.3e].: Yes Medical Necessity: Failure to Improve With Outpatient Therapy, Need Close Monitoring Due to Risk of Patient Decompensation, Risk of Complication if Not Cared For in Hospital Post Hospital Care: D/C or Transfer Summary
[2020-01-09 07:28] LABS: C-REACTIVE PROTEIN 15.2 mg/L (<10.0)
[2020-01-09] MEDS: INSULIN REG, HUMAN 100 UNIT/ML 3 ML VIAL (PYX) SUBCUT SCH ×4 (08:15→21:47)
[2020-01-09] MEDS ORDERED: DEXAMETHASONE SOD PHOS INJ 10 MG/1 ML VIAL IV SCH (10:00)
[2020-01-09] MEDS: ASCORBIC ACID 500 MG TABLET PO SCH ×2 (10:42→18:03)
[2020-01-09] MEDS: CHOLECALCIFEROL (D3) 1,000 UNIT (25 MCG) TABLET PO SCH (10:42)
[2020-01-09] MEDS: FAMOTIDINE 20 MG TABLET PO SCH ×2 (10:42→21:46)
[2020-01-09] MEDS: ZINC SULFATE 220 MG CAPSULE PO SCH (10:42)
[2020-01-09] MEDS: INSULIN GLARGINE,HUM.REC.ANLOG 1,000 UNIT/10 ML VIAL SUBCUT SCH (10:43)
[2020-01-09] MEDS: ENOXAPARIN SODIUM INJ 40 MG/0.4 ML DISP.SYRIN SUBCUT SCH (10:43)
[2020-01-09] MEDS ORDERED: DEXAMETHASONE SOD PHOSPHATE INJ 4 MG/1 ML VIAL IV SCH (11:15)
--- NOTE | 2020-01-09 15:21 | EKG REPORT ---
SEVERITY:- ABNORMAL ECG - SINUS RHYTHM FIRST DEGREE AV BLOCK CONSIDER ANTERIOR INFARCT NONSPECIFIC T ABNORMALITIES, DIFFUSE LEADS BORDERLINE PROLONGED QT INTERVAL : Confirmed by: Perri Barcenas MD 09-Jan-2020 15:20:13
--- NOTE | 2020-01-09 19:03 | Progress Note ---
Provider Note Provider Note: DENILSON DA SILVA is a 69 year old female with a history of type 2 diabetes on insulin, hypertension and CAD who was admitted by the [facility] early this morning for COVID 19 w/ intractable nausea and vomiting. Nursing notes, vital signs, laboratory results, imaging, H&P, and orders reviewed. Agree with plan of care as established by the previous provider. Patient was briefly seen on morning rounds. She has no new questions or concerns. No significant changes to clinical status from what was documented in H&P. In addition, the patient's home medications have been reconciled and resumed. As the patient is maintaining oxygen saturations on room air and appears clinically stable, will transition from IV dexamethasone to oral in anticipation of a quick turnaround to discharge. We will encourage pulmonary toilet with incentive spirometer and flutter valve. The patient states that she lives alone; we will asked discharge planning to evaluate. Patient will likely benefit from a home health nursing, aide, and social science instructor.
[2020-01-09] MEDS: METOPROLOL TARTRATE 25 MG TABLET PO SCH (21:46)
[2020-01-09] MEDS ORDERED: ATORVASTATIN CALCIUM 80 MG TABLET PO SCH (22:00)
[2020-01-09] MEDS ORDERED: MELATONIN 3 MG TABLET PO SCH (22:00)
[2020-01-10 05:45] LABS: HEMATOCRIT 36.1 % (36.0-47.0); HEMOGLOBIN 12.1 g/dL (12.0-15.5); MEAN CORPUSCULAR HEMOGLOBIN 27.5 pg (27.0-33.4); MEAN CORPUSCULAR HGB CONC 33.5 g/dL (32.0-36.0); MEAN CORPUSCULAR VOLUME 82 fl (80-97); PLATELET COUNT 274 10^3/uL (150-450); RED CELL DISTRIBUTION WIDTH 13.9 % (11.5-14.0); WHITE BLOOD COUNT 9.8 10^3/uL (4.0-10.5)
[2020-01-10] MEDS ORDERED: LEVOTHYROXINE SODIUM 0.025 MG TABLET PO SCH (06:00)
[2020-01-10] MEDS ORDERED: (PENDING PHARMACY ID) (Levothyroxine Sodium [Levothyroxine Sodium] 137 MCG Tablet) PO SCH (06:00)
[2020-01-10] MEDS ORDERED: LEVOTHYROXINE SODIUM 0.112 MG TABLET PO SCH (06:00)
[2020-01-10 06:16] LABS: ANION GAP 12 (5-19); BLOOD UREA NITROGEN 21 mg/dL (7-20); CALCIUM 9.3 mg/dL (8.4-10.2); CARBON DIOXIDE 20 mmol/L (22-30); CHLORIDE 104 mmol/L (98-107); GLUCOSE 336 mg/dL (75-110)
[2020-01-10] MEDS: INSULIN REG, HUMAN 100 UNIT/ML 3 ML VIAL (PYX) SUBCUT SCH ×2 (08:25→12:11)
[2020-01-10] MEDS ORDERED: DEXAMETHASONE 4 MG TABLET PO SCH (10:00)
[2020-01-10] MEDS ORDERED: LISINOPRIL 10 MG TABLET PO SCH (10:00)
[2020-01-10] MEDS: CHOLECALCIFEROL (D3) 1,000 UNIT (25 MCG) TABLET PO SCH (10:15)
[2020-01-10] MEDS: ASCORBIC ACID 500 MG TABLET PO SCH (10:17)
[2020-01-10] MEDS: FAMOTIDINE 20 MG TABLET PO SCH (10:17)
[2020-01-10] MEDS: ZINC SULFATE 220 MG CAPSULE PO SCH (10:17)
[2020-01-10] MEDS: METOPROLOL TARTRATE 25 MG TABLET PO SCH (10:19)
[2020-01-10] MEDS: ENOXAPARIN SODIUM INJ 40 MG/0.4 ML DISP.SYRIN SUBCUT SCH (10:19)
[2020-01-10] MEDS ORDERED: INSULIN GLARGINE,HUM.REC.ANLOG 1,000 UNIT/10 ML VIAL (PYX) SUBCUT ONE (10:21)
[2020-01-10] MEDS: INSULIN GLARGINE,HUM.REC.ANLOG 1,000 UNIT/10 ML VIAL SUBCUT SCH (10:22)
[2020-01-10] MEDS ORDERED: INSULIN GLARGINE,HUM.REC.ANLOG 1,000 UNIT/10 ML VIAL (PYX) SUBCUT SCH (11:00)
[2020-01-10 15:06] VITALS: BP 139/44
--- NOTE | 2020-01-10 18:43 | PDOC DISCHARGE SUMMARY ---
Impression - Admit/DC Date/PCP Admission Date/Primary Care Provider: 01/09/20 05:19 MARBIN CORONEL Discharge Date: 01/10/20 - Discharge Diagnosis (1) Acute respiratory failure with hypoxia Is this a current diagnosis for this admission?: Yes (2) CAD (coronary artery disease) Is this a current diagnosis for this admission?: Yes (3) Hypertension Is this a current diagnosis for this admission?: Yes (4) Obesity (BMI 30.0-34.9) Is this a current diagnosis for this admission?: Yes (5) Pneumonia due to COVID-19 virus Is this a current diagnosis for this admission?: Yes (6) Type 2 diabetes mellitus with hyperglycemia Is this a current diagnosis for this admission?: Yes - Additional Information Resuscitation Status: Full Code Discharge Diet: Diabetic Discharge Activity: Activity As Tolerated, Balance Activity w/Rest, Slowly Increase Activity Ref[facility]: [facility] [Provider [facility]] - 01/22/20 8:30 am (Dr. Victor) Prescriptions: Albuterol Sulfate [Albuterol Sulfate Hfa] 2 puff IH Q4HP PRN #1 hfa.aer.ad PRN Reason: Guaifenesin [Mucus Relief ER] 600 mg PO Q12 #14 tab.er.12h Ascorbic Acid [Vitamin C 500 mg Tablet] 500 mg PO BID #60 tablet Cholecalciferol (Vitamin D3) [Vitamin D3 1000 Unit Tablet] 1,000 unit PO DAILY #60 tablet Zinc Sulfate [Zinc-220 Capsule] 220 mg PO DAILY #30 capsule Home Medications: Atorvastatin Calcium [Lipitor 80 mg Tablet] 80 mg PO QHS 01/09/20 Dapagliflozin Propanediol [Farxiga] 10 mg PO DAILY 01/09/20 Glipizide [Glipizide Xl] 2.5 mg PO BIDBS 01/09/20 Insulin NPH Human Isophane [Novolin N Flexpen] 20 unit SUBCUT QPM 01/09/20 Insulin NPH Human Isophane [Novolin N Flexpen] 40 unit SQ QAM 01/09/20 Levothyroxine Sodium 137 mcg PO Q6AM 01/09/20 Lisinopril [Prinivil 10 mg Tablet] 30 mg PO DAILY 01/09/20 Metformin HCl [Metformin HCl ER] 750 mg PO BID 01/09/20 Metoprolol Tartrate [Lopressor 25 mg Tablet] 25 mg PO Q12 01/09/20 Albuterol Sulfate [Albuterol Sulfate Hfa] 2 puff IH Q4HP PRN #1 hfa.aer.ad 01/10/20 Ascorbic Acid [Vitamin C 500 mg Tablet] 500 mg PO BID #60 tablet 01/10/20 Cholecalciferol (Vitamin D3) [Vitamin D3 1000 Unit Tablet] 1,000 unit PO DAILY #60 tablet 01/10/20 Guaifenesin [Mucus Relief ER] 600 mg PO Q12 #14 tab.er.12h 01/10/20 Zinc Sulfate [Zinc-220 Capsule] 220 mg PO DAILY #30 capsule 01/10/20 History of Present Illiness History of Present Illness: Per H&P by Dr. Bravo: DENILSON DA SILVA is a 69 year old female with a history of type 2 diabetes on insulin, hypertension and CAD who was diagnosed with COVID-19 about 2 weeks back now presents with worsening of symptoms. She s tates that she and her were diagnosed around the same time after coming in contact with her son and grandkids where also positive. Her had mild symptoms but she continues to have nausea and repeated vomiting. She states that she has lost her sense of taste and smell. She also has a dry cough and body aches but denies any fever, chest pain or shortness of breath even with exertion. She reports that she has been unable to eat anything over the past couple of weeks and has lost significant weight of about 20 pounds in the last 2 weeks. She was given unspecified medication for the nausea and vomiting by her primary care doctor but was not helpful. On arrival patient was saturating mid 80s on room air and was placed on intranasal oxygen at 2 L which improved her saturation to mid 90s. Hospital Course Hospital Course: The patient presented to the emergency department after 2 weeks of generalized fatigue, decreased p.o. intake, nausea and emesis. She tested positive for COVID-19 as outpatient approximately 2 weeks ago. As the patient's diagnosis is >10 days [employer] and she does not evidence hypoxia she was not placed on azithromycin or remdesivir. Imaging did show scattered bilateral infiltrates suggestive of viral pneumonia, however, she continues to maintain oxygen saturations while on room air and did well during ambulatory oxygen qualification today. She was provided IV fluids for correction of dehydration related to decreased p.o. intake and nausea/vomiting. Antiemtics were made available. She is now tolerating 100% of a regular consistency/consistent carb diet without increased nausea or vomiting. Patient states that she is feeling significantly better and is comfortable with plan to discharge home with home health services. She is advised to drink plenty of fluids, eat as tolerated, and rest. We discussed the prolonged recover related to COVID. She was provided Rx for zofran odt, zinc, vit d, vit c, mucinex, and albuterol hfa. She was advised to return to the emergency department, as needed, for concerning symptoms. Physical Exam Vital Signs: Temp Pulse Resp BP Pulse Ox 98.7 F 67 21 H 139/44 H 96 01/10/20 14:54 01/10/20 14:54 01/10/20 14:54 01/10/20 14:54 01/10/20 14:54 Intake & Output 01/09/20 01/10/20 01/11/20 06:59 06:59 06:59 Intake Total 1050 240 260 Balance 1050 240 260 Weight 85 kg 80.6 kg General appearance: PRESENT: no acute distress, cooperative, obese, well- developed, well-nourished Head exam: PRESENT: atraumatic, normocephalic Eye exam: PRESENT: conjunctiva pink, EOMI, PERRLA. ABSENT: scleral icterus Mouth exam: PRESENT: moist, tongue midline Respiratory exam: PRESENT: clear to auscultation jesus, symmetrical, unlabored. ABSENT: rales, rhonchi, wheezes Cardiovascular exam: PRESENT: RRR. ABSENT: diastolic murmur, rubs, systolic murmur Vascular exam: PRESENT: normal capillary refill GI/Abdominal exam: PRESENT: normal bowel sounds, soft. ABSENT: distended, guarding, mass, organolmegaly, rebound, tenderness Rectal exam: PRESENT: deferred Extremities exam: PRESENT: full ROM. ABSENT: calf tenderness, clubbing, pedal edema Musculoskeletal exam: PRESENT: ambulatory - On room air Neurological exam: PRESENT: alert, awake, oriented to person, oriented to place, oriented to time, oriented to situation, CN II-XII grossly intact. ABSENT: motor sensory deficit Psychiatric exam: PRESENT: appropriate affect, normal mood. ABSENT: homicidal ideation, suicidal ideation Skin exam: PRESENT: dry, intact, warm. ABSENT: cyanosis, rash Results Laboratory Results: WBC 9.8 10^3/uL (4.0-10.5) 01/10/20 05:17 RBC 4.40 10^6/uL (3.72-5.28) 01/10/20 05:17 Hgb 12.1 g/dL (12.0-15.5) 01/10/20 05:17 Hct 36.1 % (36.0-47.0) 01/10/20 05:17 MCV 82 fl (80-97) 01/10/20 05:17 MCH 27.5 pg (27.0-33.4) 01/10/20 05:17 MCHC 33.5 g/dL (32.0-36.0) 01/10/20 05:17 RDW 13.9 % (11.5-14.0) 01/10/20 05:17 Plt Count 274 10^3/uL (150-450) 01/10/20 05:17 Lymph % (Auto) 22.9 % (13-45) 01/08/20 23:00 [place] % (Auto) 7.6 % (3-13) 01/08/20 23:00 Eos % (Auto) 1.4 % (0-6) 01/08/20 23:00 Baso % (Auto) 0.1 % (0-2) 01/08/20 23:00 Absolute Neuts (auto) 5.6 10^3/uL (1.7-8.2) 01/08/20 23:00 Absolute Lymphs (auto) 1.9 10^3/uL (0.5-4.7) 01/08/20 23:00 Absolute Monos (auto) 0.6 10^3/uL (0.1-1.4) 01/08/20 23:00 Absolute Eos (auto) 0.1 10^3/uL (0.0-0.6) 01/08/20 23:00 Absolute Basos (auto) 0.0 10^3/uL (0.0-0.2) 01/08/20 23:00 Seg Neutrophils % 68.0 % (42-78) 01/08/20 23:00 D-Dimer 0.81 ug/mL (0.00-0.50) H 01/08/20 23:00 Carbonic Acid 1.07 mmol/L (1.05-1.35) 01/09/20 03:30 HCO3/H2CO3 Ratio 21:1 01/09/20 03:30 ABG pH 7.43 (7.35-7.45) 01/09/20 03:30 ABG pCO2 35.4 mmHg (35-45) 01/09/20 03:30 ABG pO2 76.6 mmHg (80-100) L 01/09/20 03:30 ABG HCO3 23.0 mmol/L (20-24) 01/09/20 03:30 ABG Total CO2 24.1 mmol/L (21-25) 01/09/20 03:30 ABG O2 Saturation 95.7 % (94-98) 01/09/20 03:30 ABG Base Excess -0.9 mmol/L 01/09/20 03:30 FiO2 2L 01/09/20 03:30 Sodium 136.1 mmol/L (137-145) L 01/10/20 05:17 Potassium 4.0 mmol/L (3.6-5.0) 01/10/20 05:17 Chloride 104 mmol/L (98-107) 01/10/20 05:17 Carbon Dioxide 20 mmol/L (22-30) L 01/10/20 05:17 Anion Gap 12 (5-19) 01/10/20 05:17 BUN 21 mg/dL (7-20) H 01/10/20 05:17 Creatinine 0.73 mg/dL (0.52-1.25) 01/10/20 05:17 Est GFR ( Amer) > 60 (>60) 01/10/20 05:17 Est GFR (MDRD) Non-Af > 60 (>60) 01/10/20 05:17 Glucose 336 mg/dL (75-110) H 01/10/20 05:17 POC Glucose 278 mg/dL (70-110) H 01/10/20 11:20 Calcium 9.3 mg/dL (8.4-10.2) 01/10/20 05:17 Ferritin 154.00 ng/mL (11.1-264.0) 01/09/20 06:07 Total Bilirubin 1.2 mg/dL (0.2-1.3) 01/08/20 23:00 Direct Bilirubin 0.0 mg/dL (0.0-0.4) 01/08/20 23:00 Neonat Total Bilirubin Not Reportable 01/08/20 23:00 Neonat Direct Bilirubin Not Reportable 01/08/20 23:00 Neonat Indirect Bili Not Reportable 01/08/20 23:00 AST 17 U/L (14-36) 01/08/20 23:00 ALT 12 U/L (<35) 01/08/20 23:00 Alkaline Phosphatase 61 U/L (38-126) 01/08/20 23:00 Lactate Dehydrogenase 255 U/L (120-246) H 01/09/20 06:07 Creatine Kinase 52 U/L (30-135) 01/09/20 06:07 Troponin I < 0.012 ng/mL 01/08/20 23:00 C-Reactive Protein 15.2 mg/L (<10.0) H 01/09/20 06:07 Total Protein 6.8 g/dL (6.3-8.2) 01/08/20 23:00 Albumin 3.5 g/dL (3.5-5.0) 01/08/20 23:00 Urine Color DARK YELLOW 01/09/20 00:20 Urine Appearance CLOUDY 01/09/20 00:20 Urine pH 5.0 (5.0-9.0) 01/09/20 00:20 Ur Specific [place] 1.024 01/09/20 00:20 Urine Protein 100 mg/dL (NEGATIVE) H 01/09/20 00:20 Urine Glucose (UA) >=500 mg/dL (NEGATIVE) H 01/09/20 00:20 Urine Ketones NEGATIVE mg/dL (NEGATIVE) 01/09/20 00:20 Urine Blood NEGATIVE (NEGATIVE) 01/09/20 00:20 Urine Nitrite NEGATIVE (NEGATIVE) 01/09/20 00:20 Urine Bilirubin NEGATIVE (NEGATIVE) 01/09/20 00:20 Urine Urobilinogen NEGATIVE mg/dL (<2.0) 01/09/20 00:20 Ur Leukocyte Esterase MODERATE (NEGATIVE) H 01/09/20 00:20 Urine WBC (Auto) 156 /HPF 01/09/20 00:20 Urine RBC (Auto) 6 /HPF 11/17/20 00:20 U Hyaline Cast (Auto) 32 /LPF 01/09/20 00:20 Urine Bacteria (Auto) 3+ /HPF 01/09/20 00:20 Squamous Epi Cells Auto 11 /HPF 01/09/20 00:20 U Non-Squamous Epis Auto 1 /HPF 01/09/20 00:20 Urine Mucus (Auto) MANY /LPF 01/09/20 00:20 Urine Yeast (Budding) PRESENT /HPF 01/09/20 00:20 Urine Ascorbic Acid NEGATIVE (NEGATIVE) 01/09/20 00:20 01/08/20 23:00 Troponin I < 0.012 Impressions: Chest X-Ray 01/08/20 19:44 IMPRESSION: 1. Scattered bilateral infiltrates, typical for viral pneumonia Plan Plan of Treatment: Patient is discharged home, in stable condition, with home health nursing services. She is advised to follow-up with her primary care provider within 1 week. Drink plenty of fluids, eat as tolerated. Take your medications as prescribed. Rest. Return to the emergency department, as needed, for concerning symptoms. Time Spent: Greater than 30 Minutes Stroke Is this a Stroke Patient?: No Acute Heart Failure Is this a Heart Failure Patient?: No
== END 2020-01-10 15:40 | disposition home or self-care (01) ==
LOC: ER 18:23 → EH 01-09 05:19 → INTOOBSV 01-09 05:19 → 3W 01-09 21:31
PROVIDERS: ADMIT Student in an Organized Health Care Education/Training Program; ATTEND Registered Nurse
DX: U07.1 COVID-19 (principal); J12.89 Other viral pneumonia; J96.01 Acute respiratory failure with hypoxia; E11.65 Type 2 diabetes mellitus with hyperglycemia; I25.10 Atherosclerotic heart disease of native coronary artery without angina pectoris; I10 Essential (primary) hypertension; E66.9 Obesity, unspecified; R11.2 Nausea with vomiting, unspecified; Z79.4 Long term (current) use of insulin; Z79.899 Other long term (current) drug therapy; Z88.8 Allergy status to other drugs, medicaments and biological substances
CPT/HCPCS: 93005; 99285; 96375; 96365; 96366; 36415 ×3; 87040; 82962 ×2; 82803; 82550; 82728; 83615; 85025; 85027; 86140; 80048; 80053; 81001; 84484; 85379; 71045; 93010; G0378 ×3; A9270 ×19; J1100 ×2; J1650 ×2; J3490 ×2; J2405; J7030; J0456; J0696; J1815; J8540